=== PATIENT | female | born 1975 | race Caucasian/White ===

== ENCOUNTER 2021-12-16 12:27 | Emergency (ER) | payer MEDICARE, MEDICAID | END 2021-12-16 14:27 | disposition home or self-care (01) | LOC: CSHERS 12:27 | DX: S80.02XA Contusion of left knee, initial encounter (principal); Z87.891 Personal history of nicotine dependence; W19.XXXA Unspecified fall, initial encounter ==

== ENCOUNTER 2022-02-09 14:19 | Outpatient (CLI) | payer OTHER | END 2022-02-09 14:20 | disposition home or self-care (01) | LOC: CSHULT 14:19 | PROVIDERS: ATTEND Student in an Organized Health Care Education/Training Program | DX: I89.0 Lymphedema, not elsewhere classified (principal); M79.89 Other specified soft tissue disorders; L53.9 Erythematous condition, unspecified ==

== ENCOUNTER 2023-08-11 07:44 | Outpatient (CLI) | payer OTHER, MEDICAID ==
[2023-08-11] MEDS ORDERED: Iopamidol 300 61% 100 ML VIAL FS ONE (12:30)
== END 2023-08-11 07:45 | disposition home or self-care (01) ==
LOC: CSHCT 07:44
PROVIDERS: ATTEND Surgery
DX: R59.0 Localized enlarged lymph nodes (principal)
CPT/HCPCS: 74177; Q9967

== ENCOUNTER 2023-08-22 15:09 | Emergency (ER) | payer OTHER, MEDICAID ==
[2023-08-22 16:10] LABS: Hematocrit 37.7 % (34.9-44.5); Hemoglobin 13.7 g/dL (12.0-15.5); Mean Corpuscular HGB CONC 36.3 g/dL (32.0-36.0); Mean Corpuscular Hemoglobin 30.9 pg (27.0-33.0); Mean Corpuscular Volume 85.1 fl (81.6-98.3); Mean Platelet Volume 10.3 fl (7.4-10.4); Platelet Count 234 10x3/uL (150-450); RBC Distribution Width 14.4 % (11.5-14.5); Red Blood Cell (RBC) Count 4.43 10x6/uL (3.90-5.03)
[2023-08-22 16:12] LABS: MDiff Complete? YES
[2023-08-22 16:15] LABS: ALT (SGPT) 15 U/L (8-55); AST (SGOT) 16 U/L (5-34); Albumin 4.2 g/dL (3.5-5.0); Alkaline Phosphatase 124 U/L (40-110); Anion Gap 12 mmol/L (10-20); BUN (Urea Nitrogen) 11 mg/dL (7.0-18.7); Bilirubin, Total 0.5 mg/dL (0.2-1.2); Calc. Creatinine Clearance 0 mL/min (70-130); Calcium 8.8 mg/dL (7.8-10.44); Carbon Dioxide 20 mmol/L (22-29); Chloride 110 mmol/L (98-107); Estimated GFR 94; Globulin 2.9 g/dL (2.4-3.5); Glucose 129 mg/dL (70-105); Potassium 3.8 mmol/L (3.5-5.1); Protein, Total 7.1 g/dL (6.0-8.3); Sodium 138 mmol/L (136-145)
[2023-08-22] MEDS ORDERED: Ondansetron PF 4 MG/2 ML Vial ONE (16:19)
[2023-08-22 17:51] LABS: Eosinophils 3 % (0-10); Lymphocytes 45 % (21-51); Monocytes 2 % (0-10); Neutrophil 46 % (42-75); Reactive Lymphocytes 4 % (0-10)
[2023-08-22 17:52] LABS: Platelet Adequacy Comment Appears Adequate; RBC Morph Comment Within Normal Limits
== END 2023-08-22 17:36 | disposition home or self-care (01) ==
LOC: CSHERS 15:09
DX: R10.12 Left upper quadrant pain (principal)
CPT/HCPCS: 36415; 80053; 83690; 85025; 96374; J2405

== ENCOUNTER 2023-12-15 12:53 | Outpatient (CLI) | payer MEDICARE, MEDICAID | END 2023-12-15 12:54 | disposition home or self-care (01) | LOC: CSHRAD 12:53 | PROVIDERS: ATTEND Physician Assistant | DX: S40.022A Contusion of left upper arm, initial encounter (principal); M25.522 Pain in left elbow ==

== ENCOUNTER 2025-02-25 16:04 | Outpatient (CLI) | payer MEDICARE, MEDICAID | END 2025-02-25 16:05 | disposition home or self-care (01) | LOC: CSHRAD 16:04 | PROVIDERS: ATTEND Family Medicine Sports Medicine | DX: J20.8 Acute bronchitis due to other specified organisms (principal) | CPT/HCPCS: 71046 ==

== ENCOUNTER 2025-06-04 10:50 | Outpatient (CLI) | payer MEDICARE, MEDICAID | END 2025-06-04 10:51 | disposition home or self-care (01) | LOC: CSHRAD 10:50 | PROVIDERS: ATTEND Physician Assistant | DX: M54.50 Low back pain, unspecified (principal); M47.816 Spondylosis without myelopathy or radiculopathy, lumbar region | CPT/HCPCS: 72100 ==